=== PATIENT | male | born 1970 | race Caucasian/White ===

== ENCOUNTER 2020-07-14 13:55 | Outpatient (REF) | payer OTHER, SELFPAY ==
[2020-07-15 18:52] LABS: C. trachomatis RNA TMA NOT DETECTED (NOT DETECTED); N. gonorrhoeae RNA TMA NOT DETECTED (NOT DETECTED)
== END 2020-07-14 13:56 | disposition home or self-care (01) ==
LOC: HO.LNP 13:55
PROVIDERS: Visit Provider Family Medicine
DX: Z11.3 Encounter for screening for infections with a predominantly sexual mode of transmission (principal)
CPT/HCPCS: 36415; 87491; 87591

== ENCOUNTER 2020-07-16 09:12 | Outpatient (REF) | payer OTHER, SELFPAY ==
[2020-07-16 13:36] LABS: Syphilis Screen Nonreactive (Nonreactive)
[2020-07-19 08:19] LABS: HBS Num1 0.59 mIU/mL (0-7.99); HBsAGNum1 0.35 S/CO (0.00-0.99); HIV AB/AG Nonreactive (Nonreactive); HIV Num 1 0.06 S/CO (0.00-0.99); Hepatitis B Surface Antigen Negative (Negative); ~Hepatitis B Surface Antibody NONREACTIVE (Nonreactive)
[2020-07-19 09:03] LABS: HBc Num1 0.12 S/CO (0.00-0.79); Hepatitis B Core Antibody Nonreactive (Nonreactive); ~HepC Num1 0.08 S/CO (0.00-0.79); ~Hepatitis C Antibody Nonreactive (Nonreactive)
== END 2020-07-16 09:13 | disposition home or self-care (01) ==
LOC: HO.WFDLDS 09:12
PROVIDERS: Visit Provider Family Medicine
DX: Z11.3 Encounter for screening for infections with a predominantly sexual mode of transmission (principal)
CPT/HCPCS: 36415; 86704; 86706; 86780; 86803; 87340; 87389

== ENCOUNTER 2021-01-27 09:41 | Outpatient (REF) | payer OTHER, SELFPAY ==
[2021-01-27 10:48] LABS: MANUAL DIFF FLAG NO
[2021-01-27 10:57] LABS: Basophils Absolute Auto 0.1 X10*3/uL (0.0-0.2); Basophils Percent Auto 1.1 % (0-2); Eosinophils Absolute Auto 0.2 X10*3/uL (0.0-0.4); Eosinophils Percent Auto 5.4 % (0-4); Hematocrit 42.7 % (42-52); Hemoglobin 14.5 g/dl (14.0-18.0); Imm Gran Abs Auto 0.01 X10*3/uL (0.00-0.03); Imm Gran Pct Auto 0.2 % (0.0-0.4); Lymphocytes Percent Auto 45.4 % (20-40); Mean Corpuscular Hemoglobin 31.7 pg (27.0-33.0); Mean Corpuscular Volume 93.4 fL (80-98); Mean Platelet Volume 9.4 fL (9.4-12.4); Monocytes Absolute Auto 0.5 X10*3/uL (0.1-1.2); Monocytes Percent Auto 10.6 % (2-11); Neutrophils Absolute Auto 1.7 X10*3/uL (2.0-8.3); Neutrophils Percent Auto 37.3 % (45-73); Platelet Count 260 X10*3/uL (160-400); Red Blood Count 4.57 X10*6/uL (4.60-5.80); White Blood Count 4.4 X10*3/uL (4.8-10.8)
[2021-01-27 11:06] LABS: Alanine Aminotransferase 13 U/L (0-40); Albumin Level 4.6 g/dL (3.5-5.0); Alkaline Phosphatase 48 U/L (39-117); Anion Gap 11 (12-20); Aspartate Amino Transferase 16 U/L (5-37); Bilirubin Total 1.2 mg/dL (0.0-1.0); Blood Urea Nitrogen 15 mg/dL (9-16); Calcium 9.9 mg/dL (8.4-10.2); Carbon Dioxide 28 mmol/L (22-29); Chloride 105 mmol/L (96-108); Estimated Glomerular Filt Rate > 60; Glucose Random 97 mg/dL (60-115); Rheumatoid Factor < 15.0 IU/mL (<15.0); Sodium 140 mmol/L (135-145); Total Protein 6.9 g/dL (6.5-8.0)
[2021-01-27 12:15] LABS: Erythrocyte Sedimentation Rate 3 MM/HR (0-15)
[2021-01-29 13:31] LABS: CRP High Sensitivity <0.3 mg/L
== END 2021-01-27 09:42 | disposition home or self-care (01) ==
LOC: HO.WFDLDS 09:41
PROVIDERS: Visit Provider Family Medicine
DX: Z00.00 Encounter for general adult medical examination without abnormal findings (principal); M25.511 Pain in right shoulder; M25.512 Pain in left shoulder
CPT/HCPCS: 36415; 80053; 85025; 85652; 86141; 86431

== ENCOUNTER 2021-10-18 08:38 | Outpatient (REF) | payer OTHER, SELFPAY ==
--- NOTE | ~2021-10-18 | XR_ITS ---
EXAMINATION: XR HAND, RIGHT CLINICAL INFORMATION: Right hand pain. COMPARISON: None TECHNIQUE: PA, lateral, and oblique views of the right hand. FINDINGS: There is no evidence of acute fracture or dislocation of the right hand. Joint spaces are maintained. No suspicious erosive changes. No significant soft tissue swelling is seen. 2 mm bony density is seen about the radial aspect of the 1st metacarpal head likely sequela of previous avulsion injury. XR/XR hand RT min 3V IMPRESSION: No significant right hand abnormality appreciated.
== END 2021-10-18 08:39 | disposition home or self-care (01) ==
LOC: HO.HOSX 08:38
PROVIDERS: Visit Provider Orthopaedic Surgery
DX: M25.441 Effusion, right hand (principal); M79.644 Pain in right finger(s)
CPT/HCPCS: 73130; 99202

== ENCOUNTER → 2021-12-19 13:59 | Outpatient (BNVA) | payer OTHER, SELFPAY | PROVIDERS: PCP Family Medicine; Referring Provider Family Medicine; Visit Provider Surgery | DX: K64.4 Residual hemorrhoidal skin tags (principal); K64.8 Other hemorrhoids | CPT/HCPCS: 46600; 99202 ==

== ENCOUNTER 2023-07-04 08:05 | Outpatient (AMB) | payer OTHER, SELFPAY ==
--- NOTE | 2023-07-04 08:26 | MHC.OFFWIV ---
Intake Vital Signs 07/04/23 08:33 Pulse 72 Pulse Source Palpation Intake Visit Reasons: Cyst on left hand Allergies No Known Allergies Allergy (Verified 08/17/22 08:43) HPI Cyst on left hand HPI Details Patient?presents?with?painful?swelling?over?dorsal?aspect?of?right 3rd PIP join. He?says?this?is?getting?larger?and?quite?painful. No?injury.??No?redness. 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 Physical Exam Const General: no acute distress and well developed Nutritional Appearance: well nourished Orientation/consciousness: patient oriented x3 HEENT Head: Yes normocephalic and Yes atraumatic Eyes General: appearance normal, both eyes and all related structures Pupils: Equal, round and reactive pupils present EOM: EOMs intact bilaterally Resp Effort & Inspection: normal respiratory effort Auscultation: clear to auscultation bilaterally Cardio Rate: regular rate Rhythm: regular rhythm Heart sounds: S1 normal heart sound present, S2 normal heart sound present, no gallops, no murmurs and no rubs Neuro General: patient oriented x3 and gait normal Cranial nerves: Yes Equal, round and reactive pupils present Extrem Other: 1 cm mobile?lump/nodule?over?dorsal?aspect?of?left?3rd PIP joint. Tender?to?touch.??Tenderness?with?flexion?of?finger. No?erythema?or?excess?warmth. Psych Affect: normal affect Assessment & Plan Assessment & Plan (1) Ganglion cyst of finger of left hand: Code(s): M67.442 - Ganglion, left hand Plan: Likely?a?tendon?sheath?cyst. Referred?to?hand?specialist Meantime,?he?can?use?warm?compresses?or?warm?water?soaks. Orders: Referrals Hand Surgery Referral M67.442 - Ganglion, left hand Coding Level of Care Code Est Pt Level 3 (09137) Diagnoses Ganglion cyst of finger of left hand M67.442
[2023-07-04 08:33] VITALS: PULSE 72
== END 2023-07-04 08:29 | disposition home or self-care (01) ==
PROVIDERS: PCP Family Medicine; Visit Provider Family Medicine
DX: M67.442 Ganglion, left hand (principal)
CPT/HCPCS: 99213

== ENCOUNTER 2023-07-31 14:49 | Outpatient (AMB) | payer OTHER, SELFPAY ==
--- NOTE | 2023-07-31 15:02 | A.OFFVIS_ITS ---
Intake Vital Signs 07/31/23 15:13 Height 5 ft 6 in Weight 136 lb BMI 21.9 Handedness Right Intake Visit Reasons: New Prob - left hand Ganglion Cyst Intake Note: -Paul is a 53 year old right hand dominant male who presents today for a evaluation for his left MF lump. Patient reports jamming his hand about 2 years ago. He states that 7 months ago he noticed a lump that has been causing him a lot of pain. Pain is worse when bending his finger, cold weather makes his pain worse. Denies numbness and tingling. Allergies No Known Allergies Allergy (Verified 07/31/23 15:12) HPI New Prob - left hand Ganglion Cyst HPI Details 53-year-old right hand dominant male who presents in the office today, as a new patient, for an evaluation of a lump on the left middle finger. The patient reports he jammed his hand about 2 years ago. He states about 7 months ago, in 11/2022, he noticed a lump that was causing him pain. He states the pain increases when bending his finger or cold weather. He denies numbness or tingling. Patient has no known allergy history. Patient is not currently taking any medication at this time. Patient has no significant medical history. Patient has no known surgical history. 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 No ecchymosis, erythema, or edema. Dorsal asp ect of the PIP joint patient has a small BB sized mobile mass. No tenderness to palpation at the mass site. Able to perform full finger flexion, extension, abduction, adduction, finger cross, okay sign, and thumbs up without deficit. Able to make a closed fist. Sensation intact. Capillary refill is brisk. Radial pulse intact. Assessment & Plan Assessment & Plan (1) Mass of left hand: Comment: Dorsal aspect of the PIP joint of the left middle finger; small BB sized mobile mass Code(s): R22.32 - Localized swelling, mass and lump, left upper limb Plan Mr. Summers is a 53-year-old right hand dominant male who presents in the office today, as a new patient, for an evaluation of a lump on the left middle finger. The patient reports he jammed his hand about 2 years ago. He states about 7 months ago, in 11/2022, he noticed a lump that was causing him pain. He states the pain increases when bending his finger or cold weather. He denies numbness or tingling. Patient has no known allergy history. Patient is not currently taking any medication at this time. Patient has no significant medical history. Patient has no known surgical history. 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 We discussed the risks, benefits and alternatives to the surgery as well as the rehabilitation course. The risks; which include, but are not limited to infection, bleeding, nerve injury, ongoing pain, swelling, and stiffness, perioperative risk of injury to bones and soft tissues, and blood clots. I have answered all questions and with their understanding they have consented to move forward with an excision dorsal sided mass at the PIP joint of the left middle finger to be performed by Dr. Valdes. Dr. Valdes was available to evaluate the patient and to discuss what to expect preoperative and postoperatively. 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 A booking sheet was given to the soakers supervisor and they will reach out to t he patient for dates and time of availability. Follow up will be at the post operative appointment, or sooner if needed. Patient Instructions: Scribed for Елена Angel PA-C by baljinder White scribe, on 07/31/2023 at 2:59 pm, EST. Coding Level of Care Code Est Pt Level 4 (12370) Diagnoses Mass of left hand R22.32
[2023-07-31 15:13] VITALS: BMI 21.9
== END 2023-07-31 15:31 | disposition home or self-care (01) ==
PROVIDERS: PCP Family Medicine; Visit Provider Physician Assistant
DX: R22.32 Localized swelling, mass and lump, left upper limb (principal)
CPT/HCPCS: 99214

== ENCOUNTER → 2023-07-31 14:49 | Outpatient (BNVA) | payer OTHER, SELFPAY | PROVIDERS: PCP Family Medicine; Visit Provider Physician Assistant | DX: R22.32 Localized swelling, mass and lump, left upper limb (principal) | CPT/HCPCS: 99212 ==

== ENCOUNTER 2023-09-13 10:38 | Day surgery (SDC) | payer OTHER, SELFPAY ==
[2023-09-13 11:13] VITALS: BMI 24.5
--- NOTE | 2023-09-13 11:42 | MHC.SHP ---
Pre-Procedural Eval Section A - 24 Hr Update-Section A only Date of Service: 09/13/23 The patient is an INPATIENT: No Changes since office visit: No Cold of Flu in the past 2 weeks, No New Medical Problems, No Changes in Medication and No Patient answered all questions The patient has been examined within 24 hours of the surgical procedure. The History & Physical has been completed within 30 days and I have reviewed it.: Yes Section B - Complete if H&P > 30 days Chief Complaint: Localized swelling, mass and lump, left upper limb Allergies: Allergies Allergy/AdvReac Type Severity Reaction Status Date / Time No Known Allergies Allergy Verified 07/31/23 15:12 Plan I have reviewed the history and physical and performed a pertinent physical examination on my patient. No changes have occurred unless specified. Time Spent With Patient Time: Total time managing care of this patient today ____ minutes.
--- NOTE | 2023-09-13 11:42 | W.PM.OPN ---
Operative Note Operative Note Date of Service: 09/13/23 Narrative: Operative Note Preop diagnosis: 1. Left middle finger dorsal PIP mass Postop diagnosis: same Procedure: 1. Left middle finger dorsal PIP mass excision Surgeon: Isis Valdes MD Anesthesia: digital block using 1% lidocaine with epinephrine Findings: Small fibrous soft tissue mass measuring approximately 3-4 mm in diameter found between the central slip extensor tendon and the ulnar lateral band as they passed over the dorsal aspect of the PIP joint. EBL: Less than 5 mL Tourniquet time: None Specimens: Left middle finger soft tissue mass sent for histopathology Complications: None Disposition: Brought to recovery room in stable condition Plan: Follow-up for 7-10 days for wound check and suture removal and to check pathology Indications: The patient is 53 years old, with left middle finger dorsal PIP mass . The risks and benefits of operative treatment including but not limited to risk of damage to blood vessels, nerves, tendons, infection, persistent pain, persistent symptoms, recurrence or possible need for additional surgery were discussed with the patient and the patient wishes to proceed with surgery. Procedure: Once consent was obtained a digital block was performed in the preop area using a combination of 1% lidocaine with epinephrine. The patient was then brought back to the operating suite and placed on the operative table in supine position. A tourniquet was applied to the proximal aspect of the left upper extremity and the limb was prepped and draped in a standard surgical fashion. Once assured that we had a good block, I made a 1.5 cm dorsal longitudinal incision over the left middle finger PIP joint. The incision was made through the skin the subcutaneous tissues using a 15. Blade. I then carefully dissected down to the level of the mass using tenotomy scissors. There was a small rubbery or fibrous soft tissue mass between the central slip of the EDC tendon and the ulnar lateral band as they pass over the dorsal aspect of the left middle finger PIP joint. This was dissected free from the soft tissues and from the extensor mechanism using iris scissors and a 15. Blade. It was placed in 2 separate pieces on the back table to be sent for histopathology. No further masses were appreciated. He had full active and strong extension and flexion of the digit following the removal of the mass. Once satisfied with our left middle finger mass excision the wound was copiously irrigated with normal saline and hemostasis was obtained with a brief period of local pressure. The skin edges were reapproximated with some 5.0 nylon suture material and a sterile dressing was applied. The patient appears to have tolerated the procedure well and with no complications. All digits were well vascularized at the conclusion of the case.
[2023-09-13 13:22] VITALS: BP 129/85; PULSE 71; RESP 18; O2SAT 100
== END 2023-09-13 13:24 | disposition home or self-care (01) ==
PROVIDERS: PCP Family Medicine; Visit Provider Orthopaedic Surgery
PROC: (CPT 11420; principal; 2023-09-13 12:10)
DX: R22.31 Localized swelling, mass and lump, right upper limb (principal)
CPT/HCPCS: 11420; 88307; J0171

== ENCOUNTER → 2023-09-13 10:38 | Outpatient (BNV) | payer OTHER, SELFPAY | PROVIDERS: PCP Family Medicine; Visit Provider Orthopaedic Surgery | DX: R22.32 Localized swelling, mass and lump, left upper limb (principal) | CPT/HCPCS: 26111 ==

== ENCOUNTER 2023-09-26 12:59 | Outpatient (AMB) | payer OTHER, SELFPAY ==
--- NOTE | 2023-09-26 13:02 | A.OFFVIS_ITS ---
Intake Vital Signs 09/26/23 13:03 Height 5 ft 6 in Weight 151 lb BMI 24.4 Intake Visit Reasons: PO LT MF dorsal mass exc 09/13/23 AR Intake Note: Paul 53 yr old male presents today for his PO LT MF dorsal mass exc 09/13/[address] Valdes. Sutures removed and steri strips applied. Allergies No Known Allergies Allergy (Verified 09/26/23 13:03) HPI PO LT MF dorsal mass exc 09/13/23 AR HPI Details Paul is a 53 year old right hand dominant man who returns S/P left middle finger mass excision, DOS: 09/13/23. He says he is doing well, and is happy with the results of his surgery. He denies any pain or stiffness. 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 He has not been working since his surgery. 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 Sutures removed and Steri-Strips applied He can make a fist and extend all his digits No locking or catching Sensation is intact Cap refill is brisk Pathology report: 09/13/23 Diagnosis Soft tissue, finger mass , excision: [place] spindle cell proliferation consistent with fibroma (of tendon sheath); negative for malignancy Psych Appearance: grossly normal Affect: normal affect Attitude: cooperative Assessment & Plan Assessment & Plan (1) Fibroma of finger of left hand: Code(s): D21.12 - Benign neoplasm of connective and other soft tissue of left upper limb, including shoulder Plan Assessment & Plan: 1. 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 I explained the signs and symptoms of infection, if the patient develops any new or worsening erythema, drainage, pain, or warmth they should contact the clinic or attend the ED. He can follow up prn Scribed for Isis Valdes MD by Alexis Garrison, medical administrative, on 09/26/23 at 1:15 PM, EST. Coding Level of Care Code Global (20498) Diagnoses Fibroma of finger of left hand D21.12
[2023-09-26 13:03] VITALS: BMI 24.4
== END 2023-09-26 13:22 | disposition home or self-care (01) ==
PROVIDERS: PCP Family Medicine; Visit Provider Orthopaedic Surgery
DX: D21.12 Benign neoplasm of connective and other soft tissue of left upper limb, including shoulder (principal)
CPT/HCPCS: 99024

== ENCOUNTER → 2023-09-26 12:59 | Outpatient (BNVA) | payer OTHER, SELFPAY | PROVIDERS: PCP Family Medicine; Visit Provider Orthopaedic Surgery | DX: Z09 Encounter for follow-up examination after completed treatment for conditions other than malignant neoplasm (principal); Z87.2 Personal history of diseases of the skin and subcutaneous tissue | CPT/HCPCS: 99212 ==

== ENCOUNTER 2024-08-08 13:38 | Outpatient (REF) | payer OTHER, SELFPAY ==
[2024-08-08 17:15] LABS: Influenza A PCR NEGATIVE (Negative); Influenza B PCR NEGATIVE (Negative); Resp Syncy Virus RNA Qual PCR POSITIVE (Negative); SARS COV2 PCR INHOUSE NEGATIVE (Negative)
== END 2024-08-08 13:39 | disposition home or self-care (01) ==
LOC: HO.LNP 13:38
PROVIDERS: PCP Family Medicine; Visit Provider Physician Assistant
DX: J06.9 Acute upper respiratory infection, unspecified (principal); Z11.52 Encounter for screening for COVID-19; Z13.83 Encounter for screening for respiratory disorder NEC
CPT/HCPCS: 0241U; 99212

== ENCOUNTER → 2024-08-08 13:38 | Outpatient (AMB) | END | disposition home or self-care (01) ==

== ENCOUNTER 2024-08-25 13:16 | Outpatient (AMB) | payer OTHER, SELFPAY ==
--- NOTE | 2024-08-25 13:17 | MHC.PC.OV ---
Vital Signs 08/25/24 13:24 Height 5 ft 6 in Weight 142 lb BMI 22.9 BP 129/75 Blood Pressure Location Rt brachial Position Sitting Respiration 16 Pulse 69 Pulse Source Pulse Oximeter Temp 97.7 F Temp Source Oral Pulse Oximetry (%) 99 Oxygen Delivery Method Room Air Intake Visit Reasons: est care/dermatology referral Intake Note: patient here to [facility] care and requesting a dermatology referral. [employer] Consultant Required: No Allergies No Known Allergies Allergy (Verified 08/25/24 13:40) Medication List - Last Reconciled 08/25/24 by Obie Barry CNP No Known Home Meds Tobacco use date assessed: 08/25/24 Dental Screening Dental Screen Date: 08/25/24 Did you have a dental visit in the last 12 months?: Yes Did you have a dental problem in the last 6 months where you did not have access to dental care?: No Was dental information given to patient?: Patient has dentist HPI HPI Comments History of Present Illness Details 54-year-old male presents to establish care Prior PCP? - Dr. Rachel, [facility] Last office visit/CPE/labs - About 5 years ago Acute issue(s) - Red discoloration around his neck, upper chest, and shoulders and attributes this to prolonged sun exposure; however, he has been avoiding sun exposure. Followed by [facility] until 2.5 years ago for skin checks; requests a new referral. - Painless lesion to his left hand. His mother and brother have history of ganglion cysts. Past Medical History - Hyperopia Surgical History - Hiatal hernia repair Family History - Mom: Breast cancer, hyperlipidemia Social History - Nonsmoker. Does not vape. Drinks 2-3 beers monthly.. Denies recreational drug use - Has been making healthy dietary choices. Exercises routinely. Generally sleep well Health maintenance - Last eye exam was 2 years ago. Declines referral to Ophthalmology - Last dental was last month. Follow up for dental care every 6 months - Last tetanus vaccine was more than 10 years ago; Declines Tdap vaccine - Has not been vaccinated for the flu this season; declines vaccination - He is not vaccinated for shingles. Recommended shingles vaccine; he may get the vaccines from the local pharmacy - He is not vaccinated for pneumonia. Declines the pneumonia vaccine. - Last colonoscopy was 5 years ago somewhere in [place]: normal. Will review [facility] record for his colonoscopy. 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 1. Little interest or pleasure in doing things: not at all 2. Feeling down, depressed, or hopeless: not at all 3. Trouble falling or staying asleep, or sleeping too much: not at all 4. Feeling tired or having little energy: not at all 5. Poor appetite or overeating: not at all 6. Feeling bad about yourself - or that you are a failure or have let yourself or your family down: not at all 7. Trouble concentrating on things, such as reading the newspaper or watching television: not at all 8. Moving or speaking so slowly that other people could have noticed. Or the opposite - being so fidgety or restless that you have been moving around a lot more than usual: not at all 9. Thoughts that you would be better off or of hurting yourself in some way: not at all Total score: 0 Depression Screening Interpretation: Negative Depression Screening Done: Yes 32726 - PHQ-9 Billing: Yes Source: Developed by Drs. Cordell Lenz, Jade Viera, Austin Mcgrath and colleagues, with an educational reddy from [employer] Thrive Questionnaire Date Thrive assessed: 08/25/24 I am a: Patient What is your living situation today?: I choose not to answer this question Within the past 12 months, did the food you bought not last and you didn't have the money to get more?: I choose not to answer this question Within the past 12 months, did you worry whether your food would run out before you got money to buy more?: I choose not to answer this question Do you have trouble paying for medicines?: I choose not to answer this question Do you have trouble getting transportation to medical appointments?: I choose not to answer this question Do you have trouble paying your heating and electricity bill?: I choose not to answer this question Do you have trouble taking care of your child, family member or friend?: I choose not to answer this question Do you have trouble with day-to-day activities such as bathing, preparing meals, shopping, managing finances, etc.?: I choose not to answer this question Are you currently unemployed and looking for a job?: I choose not to answer this question Are you interested in more education?: I choose not to answer this question Please select the resources that you would like help with: None Currently or been in a relationship where the following occur: I choose not to answer THRIVE Score: 0 AUDIT C Alcohol Use Questionnaire (AUDIT-C) 1. How often do you have a drink containing alcohol?: Never Total Score: 0 Score Reviewed/Action Taken: Yes ALIZA-7 AMB Questionnaire ALIZA-7 Date ALIZA - 7 assessed: 08/25/24 Feeling nervous, anxious, or on edge: 0 = Not at all Not being able to stop or control worryin = Not at all Worrying too much about different things: 0 = Not at all Trouble relaxin = Not at all Being so restless that it is hard to sit still: 0 = Not at all Becoming easily annoyed or irritable: 0 = Not at all Feeling afraid as if something awful might happen: 0 = Not at all Total ALIZA-7 score (0-4 normal; 5-9 mild; 10-14 moderate; 15-21 severe): 0 Source: Developed by Drs. Cordell Lenz, Jade Viera, Austin Mcgrath and colleagues, with an educational reddy from [employer] ALIZA-7 Assessment Billing ALIZA-7 Assessment Tool: ALIZA-7 Assessment 71433 Review of Systems Const Details: Denies chills, Denies fatigue, Denies fever(s), Denies headache(s) and Denies weakness HEENT Denies change in vision, Denies dizziness, Denies headache(s), Denies hearing loss, Denies nasal congestion, Denies sinus pain, Denies sinus pressure and Denies sore throat Card Denies chest pain, Denies lightheadedness, Denies dyspnea and Denies other (palpitations) Resp Denies cough, Denies dyspnea and Denies wheezing GI Denies abdominal pain, Denies melena, Denies hematochezia, Denies change in bowel habits, Denies dyspepsia and Denies nausea Denies hematuria and Denies dysuria Musc Reports lesion to left hand, Denies abnormal gait, Denies myalgias, Denies arthralgias, Denies numbness and Denies tingling Skin/Breast Reports skin discoloration to neck, upper chest, and shoulder, Denies rash, Denies unusual bruising and Denies wounds Neuro Denies abnormal gait, Denies dizziness, Denies headache(s), Denies memory loss, Denies numbness, Denies Sensory deficit (Neuro), Denies tingling and Denies weakness Psych Denies anxiety, Denies depression and Denies memory loss Endo Denies cold intolerance, Denies fatigue, Denies heat intolerance, Denies polydipsia and Denies polyuria Javi/Lymph Denies easy bleeding and Denies easy bruising Aller/Immun Denies wheezing Physical exam (Primary Care) Vital Signs: Last Vital Signs Temp 97.7 F 08/25/24 13:24 Pulse 69 08/25/24 13:24 Resp 16 08/25/24 13:24 BP 129/75 08/25/24 13:24 Pulse Ox 99 08/25/24 13:24 Oxygen Delivery Method Room Air 08/25/24 13:24 BMI result Body Mass Index 22.9 Tobacco/Smoking Status: Tobacco use Status Tobacco use date assessed 08/25/24 08/25/24 13:30 Patient Tobacco Use Status Never used Tobacco 08/25/24 13:21 e-Cigarette/Vaping Use Never Used 08/25/24 13:30 PHQ-9: PHQ-9 Score PHQ-9: Total score 0 08/25/24 13:35 Depression Screening Interpretation: Negative Thrive Assessment: Date of Thrive Assessment Date Thrive assessed 08/25/24 08/25/24 13:21 Currently or been in a relationship where the following occur: I choose not to answer Const Other: General: no acute distress, well developed, alert and awake Nutritional Appearance: well nourished Orientation/consciousness: patient oriented x3 [facility] Head: Yes normocephalic and Yes atraumatic Ears: hearing grossly normal bilaterally and TM's normal bilaterally General nose exam: Normal external nose present and Normal nares present Mouth: Normal oral and palatal mucosa present and moist mucous membranes Teeth and gingiva: dentition normal Throat: Yes oropharynx normal Eyes Pupils: Equal, round and reactive pupils present and Pupil accommodation reflex normal EOM: EOMs intact bilaterally Neck Neck: Yes normal visual inspection, Yes no lymphadenopathy and Yes trachea midline Thyroid: Thyroid normal Carotids: no bruits Lymphatic: no lymphadenopathy noted Chest Chest palpation & inspection: normal inspection of the chest Resp Effort & Inspection: normal respiratory effort Auscultation: clear to auscultation bilaterally Cardio Rate: regular rate Rhythm: regular rhythm Heart sounds: S1 normal heart sound present, S2 normal heart sound present, no gallops, no murmurs and no rubs Bruits: no abdominal aortic bruits and no carotid bruits GI Palpation (GI): No Abdominal aortic bruit present, Soft to palpation, nontender, No hepatosplenomegaly present and No Rebound tenderness present Auscultation: normal bowel sounds General: Yes no CVA tenderness Back/Spine/Pelvis Back: no CVA tenderness Cervical Spine: cervical ROM normal and No Cervical spine tenderness Thoracic/Lumbar Spine: thoraco-lumbar ROM normal, No pain with thoraco-lumbar ROM, No thoracic spinal tenderness and No lumbar spinal tenderness Skin General: warm and dry. Normal skin color. Normal skin turgor. Red discoloration around his neck, upper chest, and shoulders Lesions: Small, painless lesion to the middle of his left palm. No overt infection Rashes: no rashes Trauma: no lacerations or abrasions Wounds: no wounds Nails: normal Neuro General: patient oriented x3, gait normal and CN's II-XI intact bilaterally Cranial nerves: Yes Equal, round and reactive pupils present Cognition (Neuro): normal cognition Gait exam (Neuro): Normal gait present Motor exam (neuro): 5/5 motor strength present throughout Sensory Exam: No Sensory deficit (Neuro) Deep tendon reflexes (DTR's): Right patellar reflex intensity grade: 2+ and Left patellar reflex intensity grade: 2+ Extrem General: Yes normal to inspection, No edema and No calf tenderness Psych Appearance: grossly normal Affect: normal affect Attitude: cooperative Thought process: Normal thought process present Coding Level of Care Code New Pt Prev Care 40-64y(66381) Diagnoses Normal physical examination, routine Z00.00 Discoloration of skin L81.9 Colon cancer screening Z12.11 Vaccine counseling Z71.85 Skin lesion of hand L98.9 Hyperopia H52.00 Laboratory tests ordered as part of a complete physical exam (CPE) Z00.00 Additional Codes ALIZA-7 Assessment Billing - ALIZA-7 Assessment Tool: ALIZA-7 Assessment 65346 ([id number]) PHQ-9 - 86718 - PHQ-9 Billing: Yes ([id number]) Assessment & Plan Assessment & Plan (1) Normal physical examination, routine: Code(s): Z00.00 - Encounter for general adult medical examination without abnormal findings Category: Medical Plan: No significant functional limitation. Healthy diet and routine exercise encouraged. Advised to get lab work done and follow-up for telehealth visit in 2-3 weeks for labs review. Return sooner if with symptoms or concerns. Verbalized understanding and agreed with treatment plan. (2) Discoloration of skin: Code(s): L81.9 - Disorder of pigmentation, unspecified Category: Medical Plan: Red discoloration around his neck, upper chest, and shoulders related to prolonged sun exposure. Advised to avoid prolonged sun exposure. May use sunscreen as needed. He was followed by [facility] until 2.5 years ago. Referred to [facility] as requested. (3) Colon cancer screening: Code(s): Z12.11 - Encounter for screening for malignant neoplasm of colon Category: Medical Plan: Last colonoscopy was 5 years ago: normal; unsure of where he had the colonoscopy done. Will review [facility] record for his colonoscopy. He does not want to have a colonoscopy until the next few years. (4) Vaccine counseling: Code(s): Z71.85 - Encounter for immunization safety counseling Category: Medical Plan: He has never been vaccinated for shingles or pneumonia and unsure of last tetanus vaccine. Instructed on importance of vaccination and encouraged to get vaccinated for shingles, pneumonia, and tetanus. Declines tetanus and pneumonia vaccines and notes he will get vaccinated for shingles. Advised that he may get vaccinated for shingles from the local pharmacy. He may also get the pneumonia vaccines from the pharmacy. Encouraged to follow-up if he changes his mind on the tetanus vaccine. Verbalized understanding and agreed with the plan. (5) Skin lesion of hand: Code(s): L98.9 - Disorder of the skin and subcutaneous tissue, unspecified Category: Medical Plan: Small, painless lesion to the middle of his left palm. No overt infection Likely a cyst. He will continue to monitor for pain, discomfort, and growth and will follow-up as needed. (6) Hyperopia: Code(s): H52.00 - Hypermetropia, unspecified eye Category: Medical Plan: Last eye exam was 2 years ago. Declines referral to Ophthalmology. (7) Laboratory tests ordered as part of a complete physical exam (CPE): Code(s): Z00.00 - Encounter for general adult medical examination without abnormal findings Category: Medical Plan: Fasting labs ordered as part of a complete physical exam. Advised to fast for at least 10 hours before getting labs drawn. May drink water Verbalized understanding and agreed with treatment plan. Orders: Orders Complete Blood Count Auto Diff Today Z00.00 - Encounter for general adult medical examination without abnormal findings Comprehensive [place]. Panel Fast Today Z00.00 - Encounter for general adult medical examination without abnormal findings Lipid Panel Today Z00.00 - Encounter for general adult medical examination without abnormal findings Vitamin D 25-OH Total Today Z00.00 - Encounter for general adult medical examination without abnormal findings Microalbumin, Random (w Creat) Today Z00.00 - Encounter for general adult medical examination without abnormal findings TSH reflex Free T4 Today Z00.00 - Encounter for general adult medical examination without abnormal findings UA CC w/rflx Micro + Cult Today Z00.00 - Encounter for general adult medical examination without abnormal findings PSA, Ultra Sensitive Today Z00.00 - Encounter for general adult medical examination without abnormal findings Referrals Dermatology Referral L81.9 - Disorder of pigmentation, unspecified
[2024-08-25 13:24] VITALS: BP 129/75; PULSE 69; RESP 16; TEMP 36.5; O2SAT 99; BMI 22.9
== END 2024-08-25 14:06 | disposition home or self-care (01) ==
PROVIDERS: PCP Nurse Practitioner Family; Visit Provider Nurse Practitioner Family
DX: Z00.00 Encounter for general adult medical examination without abnormal findings (principal); L81.9 Disorder of pigmentation, unspecified; Z12.11 Encounter for screening for malignant neoplasm of colon; Z71.85 Encounter for immunization safety counseling; L98.9 Disorder of the skin and subcutaneous tissue, unspecified; H52.00 Hypermetropia, unspecified eye

== ENCOUNTER → 2024-08-25 13:16 | Outpatient (BNVA) | payer OTHER, SELFPAY | PROVIDERS: PCP Nurse Practitioner Family; Visit Provider Nurse Practitioner Family | DX: Z00.00 Encounter for general adult medical examination without abnormal findings (principal); L81.9 Disorder of pigmentation, unspecified; H52.00 Hypermetropia, unspecified eye; L98.9 Disorder of the skin and subcutaneous tissue, unspecified; Z71.85 Encounter for immunization safety counseling | CPT/HCPCS: 96127; 99386 ==

== ENCOUNTER 2025-01-09 08:07 | Outpatient (REF) | payer OTHER, SELFPAY ==
--- NOTE | ~2025-01-09 | XR_ITS ---
EXAMINATION: XR LUMBAR SPINE 4 OR MORE VIEWS HISTORY: M54.50 - Low back pain, unspecified COMPARISON: There are no prior studies for comparison. FINDINGS: AP, lateral, bilateral oblique, and coned down views of the lumbar spine are submitted. Osseous mineralization is normal. Five nonrib-bearing lumbar vertebral bodies are identified, maintaining normal height and alignment without evidence of fracture or spondylolisthesis. There is mild disc space narrowing at L5-S1. The posterior elements are intact. There is no spondylolysis. The visualized paraspinal soft tissues are unremarkable. XR/XR lumbar spine 4V min IMPRESSION: Mild disc space narrowing at L5-S1. Otherwise unremarkable examination of the lumbar spine. Electronically signed by: Cordell Rehman MD 01/09/2025 09:30 AM EDT
== END 2025-01-09 08:08 | disposition home or self-care (01) ==
LOC: HO.HMGCX 08:07
PROVIDERS: PCP Nurse Practitioner Family; Visit Provider Physician Assistant
DX: M54.50 Low back pain, unspecified (principal)
CPT/HCPCS: 72110; 99212

== ENCOUNTER 2025-01-09 08:07 | Outpatient (AMB) | payer OTHER, SELFPAY ==
[2025-01-09 08:09] VITALS: BP 127/88; PULSE 57; TEMP 36.6; O2SAT 99; BMI 23.3
--- NOTE | 2025-01-09 08:09 | MHC.OFFWIV ---
Intake Vital Signs 01/09/25 08:09 Height 5 ft 6 in Weight 144 lb 8 oz BMI 23.3 BP 127/88 Blood Pressure Location Lt brachial Position Sitting Pulse 57 Pulse Source Pulse Oximeter Temp 97.9 F Temp Source Oral Pulse Oximetry (%) 99 Oxygen Delivery Method Room Air Intake Visit Reasons: EP lower back pain Intake Note: Patient presents with lower back pain 6 days and hip since October Patient Tobacco Use Status: Never used Tobacco Pot Builder Required: No Allergies No Known Allergies Allergy (Verified 01/09/25 08:14) Medication List - Last Reconciled 01/09/25 by Harmony Rasmussen PA-C No Known Home Meds Do you need a note to return to daycare/school/sports/work: No HPI HPI Comments History of Present Illness Details History - The patient is a 54-year-old male presenting with acute on chronic low back pain. 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 - The pain is typically present daily, radiating to the hip muscles, and can escalate to sharp, electrical-like pain in the spine, leading to muscle spasms and flattening of the lumbar curve. - The condition has been episodic, with severe episodes occurring approximately 6 times since onset, the last being in 2020. - The patient has attempted various interventions including physical therapy, massage, yoga, and Pilates, with limited success. He has also used NSAIDs and muscle relaxants for symptom relief. - The patient has not had a recent MRI and has a history of chronic strains and sprains documented by a senior procurement specialist. Physical Exam General: Cooperative, healthy appearing, comfortable, no acute distress and well developed Orientation: Patient oriented x3 Limitations: No limitations Head: Normal to inspection Ears: Hearing grossly normal bilaterally Nose: Normal External nose present Face and sinus: Normal facial exam Mouth: normal, moist oral mucosa Eyes: Appearance normal, both eyes and all related structures Neck: Normal visual inspection and Yes full ROM Respiratory: Normal respiratory effort and able to speak in complete sentences. 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 Current occupational exposures/hazards: No Cognitive needs: No Hearing needs: No Vision needs: No Review of Systems Const All systems reviewed & are unremarkable except as noted in HPI and below Physical Exam Vital Signs: Last Vital Signs Temp 97.9 F 01/09/25 08:09 Pulse 57 01/09/25 08:09 BP 127/88 01/09/25 08:09 Pulse Ox 99 01/09/25 08:09 Oxygen Delivery Method Room Air 01/09/25 08:09 BMI result Body Mass Index 23.3 Assessment & Plan Assessment & Plan (1) Low back pain: Code(s): M54.50 - Low back pain, unspecified Qualifiers: Chronicity: acute Back pain laterality: bilateral Sciatica presence: without sciatica Qualified Code(s): M54.50 - Low back pain, unspecified Plan: Plan Patient was informed and verbally consented to the use of an ambient scribe for clinic note documentation during this visit Chronic Low Back Pain - Plan includes obtaining an x-ray to assess the lumbar spine and follow up with PCP for consideration for an MRI if symptoms persist. - Prescribed cyclobenzaprine 5 mg for muscle relaxation, with the option to increase to 10 mg if needed. - Recommended topical NSAID, Voltaren gel, to minimize gastrointestinal side effects. Orders: Orders XR lumbar spine 4V min Today M54.50 - Low back pain, unspecified Medications: New cyclobenzaprine 5 mg PO Q8H PRN 30 tabs 0RF Muscle Spasm Coding Level of Care Code Est Pt Level 3 (88204) Diagnoses Acute bilateral low back pain without sciatica M54.50 Chronicity: acute Back pain laterality: bilateral Sciatica presence: without sciatica
== END 2025-01-09 08:49 | disposition home or self-care (01) ==
PROVIDERS: PCP Nurse Practitioner Family; Visit Provider Physician Assistant
DX: M54.50 Low back pain, unspecified (principal)

== ENCOUNTER → 2025-01-09 08:56 | Outpatient (BNV) | payer OTHER, SELFPAY | PROVIDERS: PCP Nurse Practitioner Family; Visit Provider Radiology Diagnostic Radiology | DX: M54.50 Low back pain, unspecified (principal) | CPT/HCPCS: 72110 ==

== ENCOUNTER 2025-02-06 12:57 | Outpatient (AMB) | payer OTHER, SELFPAY ==
--- NOTE | 2025-02-06 13:14 | MHC.PC.OV ---
Vital Signs 02/06/25 13:17 Height 5 ft 6 in Weight 135 lb 8 oz BMI 21.9 BP 116/64 Blood Pressure Location Rt brachial Position Sitting Respiration 16 Pulse 90 Pulse Source Pulse Oximeter Temp 97.9 F Temp Source Temporal Artery Scan Pulse Oximetry (%) 95 Oxygen Delivery Method Room Air Intake Visit Reasons: Referral and back issues Intake Note: Paul presents in the office today to discuss getting a referral for back issues. Allergies No Known Allergies Allergy (Verified 02/06/25 13:31) Medication List - Last Reconciled 02/06/25 by Obie Barry CNP cyclobenzaprine 5 mg PO Q8H PRN Tobacco use date assessed: 02/06/25 Dental Screening Dental Screen Date: 02/06/25 Did you have a dental visit in the last 12 months?: Yes Did you have a dental problem in the last 6 months where you did not have access to dental care?: No Was dental information given to patient?: Patient has dentist HPI HPI Comments History of Present Illness Details 54-year-old male presents with complaints of h/o intemittent chronic right-sided low back pain 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 Exercise, including lifting light weights intensifies the pain. He describes the pain as sharp spasms. He notes the pain usually occurs for 1 month. He has not experienced any symptoms in the past 2 weeks. He notes that he has experiences severe episodes of the pain a total of 6-8 times. No acute symptoms at this time. He denies history of fall, injury, or trauma. He was evaluated at [facility] walk-in clinic on 01/09/2022 for chronic low back pain, radiating to the hip muscles since the age of 25. He noted that The condition has been episodic, with severe episodes occurring approximately 6 times since onset, the last being in 2020. Physical therapy massage, yoga, and Pilates were ineffective. X-ray of lumbar spine revealed mild disc space narrowing L5-S1. Otherwise unremarkable x-ray of lumbar spine. 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 Current occupational exposures/hazards: No Cognitive needs: No Hearing needs: No Vision needs: No Questionnaire Thrive Questionnaire Date Thrive assessed: 08/25/24 I am a: Patient What is your living situation today?: I choose not to answer this question Within the past 12 months, did the food you bought not last and you didn't have the money to get more?: I choose not to answer this question Within the past 12 months, did you worry whether your food would run out before you got money to buy more?: I choose not to answer this question Do you have trouble paying for medicines?: I choose not to answer this question Do you have trouble getting transportation to medical appointments?: I choose not to answer this question Do you have trouble paying your heating and electricity bill?: I choose not to answer this question Do you have trouble taking care of your child, family member or friend?: I choose not to answer this question Do you have trouble with day-to-day activities such as bathing, preparing meals, shopping, managing finances, etc.?: I choose not to answer this question Are you currently unemployed and looking for a job?: I choose not to answer this question Are you interested in more education?: I choose not to answer this question Please select the resources that you would like help with: None Currently or been in a relationship where the following occur: I choose not to answer THRIVE Score: 0 ALIZA-7 AMB Questionnaire ALIZA-7 Date ALIZA - 7 assessed: 08/25/24 Source: Developed by Drs. Cordell Lenz, Jade Viera, Austin Mcgrath and colleagues, with an educational reddy from [employer]. Review of Systems Const Details: Const Denies chills, Denies fatigue, Denies fever(s), Denies headache(s) and Denies weakness ENT Denies dizziness and Denies headache(s) Card Denies chest pain, Denies lightheadedness, Denies dyspnea and Denies other (Palpitations) Resp Denies cough, Denies dyspnea, Denies wheezing and Denies other ( shortness of breath) GI Denies abdominal pain, Denies melena, Denies hematochezia, Denies change in bowel habits, Denies dyspepsia and Denies nausea Denies hematuria and Denies dysuria Musc Denies abnormal gait, Denies myalgias, Denies arthralgias, Denies numbness and Denies tingling Skin/Breast Denies rash, Denies unusual bruising and Denies wounds Neuro Denies abnormal gait, Denies dizziness, Denies headache(s), Denies memory loss, Denies numbness, Denies Sensory deficit (Neuro), Denies tingling and Denies weakness Psych Denies anxiety, Denies depression, Denies memory loss Endo Denies cold intolerance, Denies fatigue, Denies heat intolerance, Denies polydipsia and Denies polyuria Aller/Immun Denies wheezing Physical exam (Primary Care) Vital Signs: Last Vital Signs Temp 97.9 F 02/06/25 13:17 Pulse 90 02/06/25 13:17 Resp 16 02/06/25 13:17 BP 116/64 02/06/25 13:17 Pulse Ox 95 02/06/25 13:17 Oxygen Delivery Method Room Air 02/06/25 13:17 BMI result Body Mass Index 21.9 Tobacco/Smoking Status: Tobacco use Status Tobacco use date assessed 02/06/25 02/06/25 13:20 Patient Tobacco Use Status Never used Tobacco 02/06/25 13:17 e-Cigarette/Vaping Use Never Used 02/06/25 13:17 Thrive Assessment: Date of Thrive Assessment Date Thrive assessed 08/25/24 02/06/25 13:14 Currently or been in a relationship where the following occur: I choose not to answer Const Other: General: no acute distress and well developed Nutritional Appearance: well nourished Orientation/consciousness: patient oriented x3 HENMT Head: Yes normocephalic and Yes atraumatic Eyes General: appearance normal, both eyes and all related structures Pupils: Equal, round and reactive pupils present EOM: EOMs intact bilaterally Resp Effort & Inspection: normal respiratory effort Auscultation: clear to auscultation bilaterally Cardio Rate: regular rate Rhythm: regular rhythm Heart sounds: S1 normal heart sound present, S2 normal heart sound present, no gallops, no murmurs and no rubs GI Palpation (GI): No Abdominal aortic bruit present, Soft to palpation, nontender, No hepatosplenomegaly present and No Rebound tenderness present Auscultation: normal bowel sounds General: Yes no CVA tenderness Back/Spine/Pelvis Back: no CVA tenderness Cervical Spine: cervical ROM normal and No Cervical spine tenderness Thoracic/Lumbar Spine: thoraco-lumbar ROM normal, No pain with thoraco-lumbar ROM, No thoracic spinal tenderness and No lumbar spinal tenderness Extrem General: Yes normal to inspection, No edema and No calf tenderness Skin General: warm and dry. Normal skin color. Normal skin turgor Lesions: no lesions Rashes: no rashes Trauma: no lacerations or abrasions Wounds: no wounds Nails: normal Neuro General: patient oriented x3, gait normal and no focal neuro deficit Cranial nerves: Yes Equal, round and reactive pupils present Cognition (Neuro): normal cognition Gait exam (Neuro): Normal gait present Sensory Exam: No Sensory deficit (Neuro) Psych Appearance: grossly normal Affect: normal affect Attitude: cooperative Thought process: Normal thought process present Coding Level of Care Code Est Pt Level 4 (59235) Diagnoses Acute bilateral low back pain without sciatica M54.50 Chronicity: acute Back pain laterality: bilateral Sciatica presence: without sciatica Assessment & Plan Assessment & Plan (1) Low back pain: Code(s): M54.50 - Low back pain, unspecified Category: Medical Qualifiers: Chronicity: acute Back pain laterality: bilateral Sciatica presence: without sciatica Qualified Code(s): M54.50 - Low back pain, unspecified Plan: No acute symptoms at this time. No tenderness to palpation. No acute injury or trauma. May take Tylenol ibuprofen for pain or discomfort. Take cyclobenzaprine as prescribed. Warm/cool compresses encouraged. Referred to [facility] Orthopedics. Encouraged to schedule a telehealth visit for labs review and perform fasting lab work before that visit. Return sooner with worsening or new symptoms. Verbalized understanding and agreed with the plan. Orders: Referrals Orthopedics Referral M54.50 - Low back pain, unspecified
[2025-02-06 13:17] VITALS: BP 116/64; PULSE 90; RESP 16; TEMP 36.6; O2SAT 95; BMI 21.9
== END 2025-02-06 13:43 | disposition home or self-care (01) ==
LOC: HO.HMCFM 12:58
PROVIDERS: PCP Nurse Practitioner Family; Visit Provider Nurse Practitioner Family
DX: M54.50 Low back pain, unspecified (principal)

== ENCOUNTER → 2025-02-06 12:57 | Outpatient (BNVA) | payer OTHER, SELFPAY | PROVIDERS: PCP Nurse Practitioner Family; Visit Provider Nurse Practitioner Family | DX: M54.50 Low back pain, unspecified (principal) | CPT/HCPCS: 99212 ==

== ENCOUNTER 2025-03-26 09:27 | Outpatient (AMB) | payer OTHER, SELFPAY ==
--- NOTE | 2025-03-26 09:30 | A.OFFVIS_ITS ---
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 Patient was referred by [facility] Family Medicine 02/11/25. Patient had a Lumbar spine x ray done on 01/09/25 at [facility] walk in clinic. Patient was se en by his PCP 02/06/25 at their visit they discussed that he has had back pain since he was 25 years old, in the past few weeks the right sided lower back pain started to flair up. 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 At today's visit he states that he has lived with this pain for over 30 years, and that the pain is very sporadic. He states that due to the pain he had to give up some of his passions like riding a bike or snowboarding. Patient states that he has tried and failed physical therapy and tried injections in the past with no relief. Allergies No Known Allergies Allergy (Verified 03/26/25 09:35) Medication List - Last Reconciled 03/26/25 by Lenka Phillips MD No Known Home Meds HPI Comments Details: On/off for many years now. Severe episodes 6-8 times since age 25. Last severe episode few months, goes away quickly if he completely stops (no work, lies down). No specific diagnosis besides chronic strain. Last MRI 15 years ago without anything extraordinary. He has cut back with work because he is more difficulty. But trying to do exercises before it reproduces the pain. Starts on the sides/hip area, goes around the hip/groin and gluteus. It is in the gluteus muscles that would be very tight. When he gets severe, difficult to bend forward. No shooting pain lower than groin/medial thighs. Had gone to [facility] in , 6-10 years ago, but he remembers being under fluoro. Today no pain. Last xray at Urgent Care which probably was a lumbar spine, told to be unremarkable. History of right labral hip tear, catches here and there but has not been an issue. 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 Current occupational exposures/hazards: No Cognitive needs: No Hearing needs: No Vision needs: No Physical Exam Exam Exam: Constitutional: Patient appears to be in no acute distress, well nourished and well developed. Patient was appropriately conversant and oriented. Good historian. MSK: No specific abnormalities found on inspection of the spine and all extremities. No pain with palpation over the lumbar area. But indicated that usual pain would come on piriformis area. Lumbar ROM was full. Bilateral hip, knee and ankle ROM WNL. No ligamentous laxity or crepitance. No increased effusion. Straight-leg raising test negative. FABERE test negative. Gillet test is negative. Strength is 5/5 in all muscle groups tested. No increased tone noted. Neurological: Neurologic examination of the upper and lower extremities was nonfocal with intact sensation, muscle stretch reflexes and without focal motor deficits . Garrison?s negative bilaterally. Babinski was down going bilaterally. Clonus was negative. Gait is non-antalgic without loss of balance. Vital Signs: BMI result Body Mass Index 22.6 Assessment & Plan Assessment & Plan (1) Chronic bilateral back pain: Code(s): M54.9 - Dorsalgia, unspecified; G89.29 - Other chronic pain Category: Medical Qualifiers: Back pain location: low back pain Sciatica presence: without sciatica Qualified Code(s): M54.50 - Low back pain, unspecified; G89.29 - Other chronic pain (2) Piriformis syndrome of right side: Code(s): G57.01 - Lesion of sciatic nerve, right lower limb Category: Medical Plan Chronic on and off back pain, suspect piriformis syndrome. No pain today. We will do SI joint and lumbar x-rays, evaluate disc spaces, rule out sacroiliitis. Getting hip x-rays to rule out osteoarthritis. When pain starts again, patient is to call our office so I could evaluate him. Assessment and plan discussed with patient, and patient was agreeable. All questions were answered thoroughly. Lenka Phillips MD, JANEL Board Certified, [place] Board [employer] and Rehabilitation (ABPMR) Board Certified, [place] Board of Electrodiagnostic Medicine (ABEM) Orders: Orders XR hips JUANCARLOS min 3V Today G89.29 - Other chronic pain, M25.559 - Pain in unspecified hip, M54.9 - Dorsalgia, unspecified XR sacroiliac joint min 3V Today G89.29 - Other chronic pain, M54.9 - Dorsalgia, unspecified XR lumbar spine 2-3V Today G89.29 - Other chronic pain, M54.9 - Dorsalgia, unspecified Coding Level of Care Code New Pt Level 4 (93905) Diagnoses Chronic bilateral low back pain without sciatica M54.50; G89.29 Back pain location: low back pain Sciatica presence: without sciatica Piriformis syndrome of right side G57.01
[2025-03-26 09:35] VITALS: BMI 22.6
== END 2025-03-26 11:17 | disposition home or self-care (01) ==
LOC: HO.HOS 09:27
PROVIDERS: PCP Nurse Practitioner Family; Visit Provider Physical Medicine & Rehabilitation
DX: M54.50 Low back pain, unspecified (principal); G89.29 Other chronic pain; G57.01 Lesion of sciatic nerve, right lower limb
CPT/HCPCS: 99204

== ENCOUNTER 2025-03-26 09:27 | Outpatient (REF) | payer OTHER, SELFPAY ==
--- NOTE | ~2025-03-26 | XR_ITS ---
EXAMINATION: XR BILATERAL HIPS WITH AP PELVIS CLINICAL INFORMATION: M25.559 - Pain in unspecified hip COMPARISON: None available. TECHNIQUE: AP and frog-leg lateral views of each hip. FINDINGS: Right hip: The joint space is congruent and preserved. No chondrocalcinosis is identified. Small marginal osteophyte is present in the fovea. Left hip: There is subtle axial joint space narrowing. There is a small foveal marginal osteophyte without visible chondrocalcinosis. XR/XR hips JUANCARLOS min 3V IMPRESSION: Right hip demonstrates a small foveal osteophyte. Subtle axial joint space narrowing and small foveal marginal osteophyte is noted in the left hip joint. Electronically signed by: Ezequiel De La Rosa MD 03/26/2025 11:06 AM EDT
--- NOTE | ~2025-03-26 | XR_ITS ---
EXAMINATION: XR SACROILIAC JOINTS CLINICAL INFORMATION: M54.9 - Dorsalgia, unspecified COMPARISON: None available. TECHNIQUE: 3 views of the sacroiliac joints FINDINGS: SI joints are symmetrical without narrowing, subchondral sclerosis, effusion, or erosions. XR/XR sacroiliac joint min 3V IMPRESSION: Unremarkable sacroiliac joints. Electronically signed by: Ezequiel De La Rosa MD 03/26/2025 10:58 AM EDT
--- NOTE | ~2025-03-26 | XR_ITS ---
EXAMINATION: XR LUMBOSACRAL SPINE CLINICAL INFORMATION: M54.9 - Dorsalgia, unspecified COMPARISON: None available. TECHNIQUE: Three views of the lumbosacral spine. FINDINGS: Vestigial ribs are present at L1. There are 5 nonrib-bearing lumbar segments otherwise. L1-2 demonstrates mild disc space narrowing. L2-3 demonstrates minimal disc space narrowing. L3-4 unremarkable L4-5: There is subtle retrolisthesis. L5-S1: Unremarkable XR/XR lumbar spine 2-3V IMPRESSION: Very mild disc disease as detailed. Electronically signed by: Ezequiel De La Rosa MD 03/26/2025 11:03 AM EDT
--- OUTSIDE RECORDS SUMMARY | 2025-03-26 12:03 | XMS_ITS | Clinical Summary ---
Author Organization [facility] Address [address] [place] [id number] Phone Care Team Providers Care Senior Windows Systems Administrator Name Role Phone Abelardo Rachel MD Primary Care Provider Allergies No known active allergies Active Problems Problem Noted Date Diagnosed Date Changing skin lesion 11/29/2022 Epidermal inclusion cyst 11/20/2022 Family History Relation Status Comments Father Alive Mother Alive Social History Tobacco Use Types Packs/Day Years Used Date Smoking Tobacco: Never Smokeless Tobacco: Never Tobacco Cessation:Counseling Given: Not Answered Alcohol Use Standard Drinks/Week Comments Yes 0 (1 standard drink = 0.6 oz pur e alcohol) Education Answer Date Recorded Are you interested in more education? Not on juan a e 11/08/2022 Are you concerned about learning? Not on file 11/08/2022 No 11/08/2022 No 11/08/2022 Digital Access Answer Date Recorded No 11/21/2022 No 11/21/2022 No 11/21/2022 Reliable internet access at home? Not on file 11/21/2022 Device with a working camera? Not on file Sex and Gender Information Value Date Recorded Sex Assigned at Not on file Legal Sex Male 1:43 PM EDT Gender Identity Not on file Sexual Orientation Not on file Last Filed Vital Signs Vital Sign Reading Time Taken Comments Blood Pressure 121/81 11/20/2022 1:31 PM EDT Pulse 61 11/20/2022 1:31 PM EDT Temperature - - Respiratory Rate - - Oxygen Saturation - - Inhaled Oxygen Concentration - - Weight 64.9 kg (143 lb) 11/20/2022 1:31 PM EDT Height 167.6 cm (5' 6 ) 11/20/2022 1:31 PM EDT Body Mass Index 23.08 11/20/2022 1:31 PM EDT Plan of Treatment Health Maintenance Due Date Last Done Comments Adult Td,Tdap Booster 1971 LIPID PANEL 1971 DEPRESSION SCREENING 1983 HEPATITIS C SCREENING 1989 HIV ONE-TIME SCREENING (18-6 5 YEARS) 1989 COLOGUARD 2016 COLONOSCOPY 2016 COLORECTAL CANCER SCREENING 2016 FIT TEST 2016 FOBT 2016 SIGMOIDOSCOPY 2016 VIRTUAL COLONOSCOPY 2016 PNEUMOCOCCAL VACCINES (50+ y ears) (1 of 1 - PCV) 2021 ZOSTER VACCINES (1 of 2) 2021 INFLUENZA VACCINE (#1) 2025 COVID-19 VACCINE (2023-2 5 season) 2025 SMOKING STATUS SCREENING (On ce After 26 Yrs) Completed 11/20/2022 HEPATITIS A VACCINES Aged Out No long er eligible based on patient's age to complete this topic HIB VACCINES Aged Out No longer eligi ble based on patient's age to complete this topic MENINGOCOCCAL VACCINES (ACWY) Aged Out No longer eligible based on patient's age to complete this topic MENINGOCOCCAL VACCINES (B) Aged Out N o longer eligible based on patient's age to complete this topic Medical Devices Not on file Insurance [facility] [place] [address] [place] [address] [address] [place] [address] [address] [place] [address] [place] [address] [place] [address] ACO Care Teams Senior Windows Systems Administrator Relationship Specialty Start Date End Date Abelardo Rachel MD [address] [place] [address] PCP - General 11/08/22 Additional Source Comments The information contained in this document represents components of the legal health record. It is not the complete legal health record.[facility]
--- OUTSIDE RECORDS SUMMARY | 2025-03-26 12:03 | XMS_ITS | Clinical Summary ---
Author Organization [facility] Address [address] [place] [address] Phone Care Team Providers Care Pasteurizer Name Role Phone Obie Barry Primary Care Provider [phone] Allergies Active Allergy Reactions Criticality Noted Date Comments Prednisone Rash 02/03/2025 Medications No known medications Encounters Date Type Department Care Team Description 02/25/2025 2:30 PM EDT Procedure visit [address] [phone] Keegan Brewer, DO Melanocytic nevi of other parts of face (Primary Dx) 02/11/2025 Telephone [facility] [address] [phone] Keegan Brewer DO 02/03/2025 2:45 PM EDT Consult [address] [phone] Keegan Brewer, DO Melanocytic nevi of other parts of face from Last 3 Months Social History Tobacco Use Types Packs/Day Years Used Date Smoking Tobacco: Never Assessed Sex and Gender Information Value Date Recorded Sex Assigned at Male 01/05/2025 12:07 PM EDT Legal Sex Male 11:57 AM EDT Gender Identity Male 01/05/2025 12:07 PM EDT Sexual Orientation Straight 01/05/2025 12 :07 PM EDT Last Filed Vital Signs Vital Sign Reading Time Taken Comments Blood Pressure 121/85 02/25/2025 2:42 PM EDT Pulse 69 02/25/2025 2:42 PM EDT Temperature 36.4 C (97.5 F) 02/25/2025 2:42 PM EDT Respiratory Rate - - Oxygen Saturation - - Inhaled Oxygen Concentration - - Weight 63 kg (139 lb) 02/25/2025 2:42 PM EDT Height 167.6 cm (5' 6 ) 02/25/2025 2:42 PM EDT Body Mass Index 22.44 02/25/2025 2:42 PM EDT Plan of Treatment Health Maintenance Due Date Last Done Comments COVID-19 Vaccine (#1) 1976 Hepatitis B Vaccines (1 of 3 - 19+ 3-dose series) 1990 Zoster Vaccines (1 of 2) 1990 Pneumococcal Vaccine: 50+ Ye ars (1 of 1 - PCV) 2021 Depression Screening 07/02/2024 Cholesterol Screening (Lipid Panel) 01/05/2025 Colorectal Cancer Screening: Colonoscopy 01/05/2025 HIV Screening 01/05/2025 Hepatitis C Screening 01/05/2025 Social Influencers of Health Screening 01/05/2025 Influenza Vaccine (#1) 2025 DTaP,Tdap,and Td Vaccines (2 - Td or Tdap) 01/28/2030 01/29/2020 RSV Immunization Adult Patie nts (1 - 1-dose 75+ series) 2046 HIB Vaccines Aged Out No longer eligi ble based on patient's age to complete this topic HPV Vaccines Aged Out No longer eligi ble based on patient's age to complete this topic Hepatitis A Vaccines Aged Out No long er eligible based on patient's age to complete this topic IPV Vaccines Aged Out No longer eligi ble based on patient's age to complete this topic MMR Vaccines Aged Out No longer eligi ble based on patient's age to complete this topic Meningococcal ACWY Vaccine Aged Out N o longer eligible based on patient's age to complete this topic Meningococcal B Vaccine Aged Out No l onger eligible based on patient's age to complete this topic RSV Immunization Patients Un bri 20 months Aged Out No longer eligible b ased on patient's age to complete this topic Varicella Vaccines Aged Out No longer eligible based on patient's age to complete this topic Procedures Procedure Name Priority Date/Time Associated Diagnosis Comments TISSUE EXAM Routine 02/25/2025 3:08 PM EDT Melanocytic nevi of other parts of face from Last 3 Months Results * Tissue Exam (02/25/2025 3:08 PM EDT) Final Diagnosis Skin, upper back, excision: Dermal scar No atypical melanocytic proliferation identified 02/27/2025 12:51 PM EDT [facility] Clinical Information Stitch 3 o'clock superior [id number] COMPOUND NEVUS Melanocytic nevi of other parts of face (D22.39) 02/27/2025 12:51 PM EDT [facility] Gross Description A. Back, Upper, : Labeled back U . Received in formalin is a 1.8 x 0.8 x 0.7 cm eastman, mottled skin ellipse and subcutis with a suture present per the requisition 3 o'clock superior , at one peripheral edge. The 12-3-6 o'clock aspect is inked black. The 6-9-12 o'clock aspect is inked black and the epidermis at 12 is inked green. The specimen is serially sectioned sequentially from 12-6. The cut surfaces are fibrotic. The specimen is submitted in entirety in four cassettes. 1-12 and 6 o'clock en face tips with green ink at 12, two pieces 2-4 center of specimen, blocked out, from 12-6, two pieces each TS 02/27/2025 12:51 PM EDT [facility] Disclaimer Unless otherwise specified, all tissue is 10% NB formalin fixed and paraffin embedded. 02/27/2025 12:51 PM EDT [facility] Tissue Structure of upper back / Unknown Non-blood Collection / Unknown 02/25/2025 3:08 PM EDT 02/25/2025 3:08 PM EDT Comment:Stitch 3 o'clock sup erior [id number] NEVUS us Keegan Brewer DO LAB PATHOLOGY ORDERABLES Final Result [facility] [address] [place] [address], [place] [phone] from Last 3 Months Insurance [facility] PL[facility] Care Teams Pasteurizer Relationship Specialty Start Date End Date Obie Barry FNP [address] [place] [phone] PCP - General Family Medicine 01/05/25
== END 2025-03-26 09:28 | disposition home or self-care (01) ==
LOC: HO.HOSX 09:27
PROVIDERS: PCP Nurse Practitioner Family; Visit Provider Physical Medicine & Rehabilitation
DX: G89.29 Other chronic pain (principal); G57.01 Lesion of sciatic nerve, right lower limb; M54.50 Low back pain, unspecified; M25.551 Pain in right hip; M25.552 Pain in left hip
CPT/HCPCS: 72100; 72202; 73522; 99202

== ENCOUNTER → 2025-03-26 10:06 | Outpatient (BNV) | payer OTHER, SELFPAY | PROVIDERS: PCP Nurse Practitioner Family; Visit Provider Radiology Diagnostic Radiology | DX: M25.751 Osteophyte, right hip (principal); M25.752 Osteophyte, left hip; M54.9 Dorsalgia, unspecified | CPT/HCPCS: 72100; 72202; 73522 ==

== ENCOUNTER 2025-04-27 12:25 | Outpatient (AMB) | payer OTHER, SELFPAY ==
--- NOTE | 2025-04-27 12:29 | A.OFFPC_ITS ---
Vital Signs 04/27/25 12:34 Height 5 ft 6 in Weight 144 lb 8 oz BMI 23.3 BP 114/67 Blood Pressure Location Rt brachial Position Sitting Respiration 16 Pulse 73 Pulse Source Pulse Oximeter Temp 97.3 F Temp Source Oral Pulse Oximetry (%) 99 Oxygen Delivery Method Room Air Intake Visit Reasons: Cyst on finger left hand Intake Note: patient here c/o Cyst on left hand finger Treasury Consultant Required: No Allergies No Known Allergies Allergy (Verified 04/27/25 12:46) Medication List - Last Reconciled 04/27/25 by Obie Barry CNP No Known Home Meds Tobacco use date assessed: 04/27/25 Dental Screening Dental Screen Date: 04/27/25 Did you have a dental visit in the last 12 months?: Yes Did you have a dental problem in the last 6 months where you did not have access to dental care?: No Was dental information given to patient?: Patient has dentist HPI HPI Comments History of Present Illness Details 54-year-old male presents with complaint s of lump to his left 3rd digit. The cyst was surgically removed, but has been growing again, gradually, in the past one year. It is painful only when the area is struck on an object or during the cold weather. No pain to palpation. 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 He wants hand surgery to look at the finger. He had surgical removal of of 3-4 mm mass from the PIP joint of his left hand in 09/13/[address] [place] [facility] [place] 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 Current occupational exposures/hazards: No Cognitive needs: No Hearing needs: No Vision needs: No Questionnaire Thrive Questionnaire Date Thrive assessed: 08/25/24 I am a: Patient What is your living situation today?: I choose not to answer this question Within the past 12 months, did the food you bought not last and you didn't have the money to get more?: I choose not to answer this question Within the past 12 months, did you worry whether your food would run out before you got money to buy more?: I choose not to answer this question Do you have trouble paying for medicines?: I choose not to answer this question Do you have trouble getting transportation to medical appointments?: I choose not to answer this question Do you have trouble paying your heating and electricity bill?: I choose not to answer this question Do you have trouble taking care of your child, family member or friend?: I choose not to answer this question Do you have trouble with day-to-day activities such as bathing, preparing meals, shopping, managing finances, etc.?: I choose not to answer this question Are you currently unemployed and looking for a job?: I choose not to answer this question Are you interested in more education?: I choose not to answer this question Please select the resources that you would like help with: None Currently or been in a relationship where the following occur: I choose not to answer THRIVE Score: 0 ALIZA-7 AMB Questionnaire ALIZA-7 Date ALIZA - 7 assessed: 08/25/24 Source: Developed by Drs. Cordell Lenz, Jade Viera, Austin Mcgrath and colleagues, with an educational reddy from [employer]. Review of Systems Const Details: Const Denies chills, Denies fatigue, Denies fever(s), Denies headache(s) and Denies weakness ENT Denies dizziness and Denies headache(s) Card Denies chest pain, Denies lightheadedness, Denies dyspnea and Denies other (Palpitations) Resp Denies cough, Denies dyspnea, Denies wheezing and Denies other ( shortness of breath) GI Denies abdominal pain, Denies melena, Denies hematochezia, Denies change in bowel habits, Denies dyspepsia and Denies nausea Denies hematuria and Denies dysuria Musc Reports as per HPI Skin/Breast Denies rash, Denies unusual bruising and Denies wounds Neuro Denies abnormal gait, Denies dizziness, Denies headache(s), Denies memory loss, Denies numbness, Denies Sensory deficit (Neuro), Denies tingling and Denies weakness Psych Denies anxiety, Denies depression, Denies memory loss Endo Denies cold intolerance, Denies fatigue, Denies heat intolerance, Denies polydipsia and Denies polyuria Aller/Immun Denies wheezing Physical exam (Primary Care) Vital Signs: Last Vital Signs Temp 97.3 F 04/27/25 12:34 Pulse 73 04/27/25 12:34 Resp 16 04/27/25 12:34 BP 114/67 04/27/25 12:34 Pulse Ox 99 04/27/25 12:34 Oxygen Delivery Method Room Air 04/27/25 12:34 BMI result Body Mass Index 23.3 Tobacco/Smoking Status: Tobacco use Status Tobacco use date assessed 04/27/25 04/27/25 12:37 Patient Tobacco Use Status Never used Tobacco 04/27/25 12:30 e-Cigarette/Vaping Use Never Used 04/27/25 12:30 Thrive Assessment: Date of Thrive Assessment Date Thrive assessed 08/25/24 04/27/25 12:30 Currently or been in a relationship where the following occur: I choose not to answer Const Other: General: no acute distress and well developed Nutritional Appearance: well nourished Orientation/consciousness: patient oriented x3 HENMT Head: Yes normocephalic and Yes atraumatic Eyes General: appearance normal, both eyes and all related structures Pupils: Equal, round and reactive pupils present EOM: EOMs intact bilaterally Resp Effort & Inspection: normal respiratory effort Auscultation: clear to auscultation bilaterally Cardio Rate: regular rate Rhythm: regular rhythm Heart sounds: S1 normal heart sound present, S2 normal heart sound present, no gallops, no murmurs and no rubs GI Palpation (GI): No Abdominal aortic bruit present, Soft to palpation, nontender, No hepatosplenomegaly present and No Rebound tenderness present Auscultation: normal bowel sounds General: Yes no CVA tenderness Back/Spine/Pelvis Back: no CVA tenderness Cervical Spine: cervical ROM normal and No Cervical spine tenderness Thoracic/Lumbar Spine: thoraco-lumbar ROM normal, No pain with thoraco-lumbar ROM, No thoracic spinal tenderness and No lumbar spinal tenderness Extrem General: Yes normal to inspection, No edema and No calf tenderness, Left PIP joint with very small, nontender mass, no erythema or edema, normal ROM Skin General: warm and dry. Normal skin color. Normal skin turgor Neuro General: patient oriented x3, gait normal and no focal neuro deficit Cranial nerves: Yes Equal, round and reactive pupils present Cognition (Neuro): normal cognition Gait exam (Neuro): Normal gait present Sensory Exam: No Sensory deficit (Neuro) Psych Appearance: grossly normal Affect: normal affect Attitude: cooperative Thought process: Normal thought process present Coding Level of Care Code Est Pt Level 4 (49234) Diagnoses Ganglion cyst of finger of left hand M67.442 Assessment & Plan Assessment & Plan (1) Ganglion cyst of finger of left hand: Code(s): M67.442 - Ganglion, left hand Category: Medical Plan: He had surgery in 09/13/2023 but the cyst has been growing gradually in the past 1 year. Left PIP joint with very small, nontender mass, no erythema or edema, normal ROM. Referred to ortho surgery for re-evaluation. Encouraged to perform fasting lab work ordered, in August, and follow-up for telehealth visit for labs review. Verbalized understanding and agreed with plan. Orders: Referrals Hand Surgery Referral M67.442 - Ganglion, left hand
[2025-04-27 12:34] VITALS: BP 114/67; PULSE 73; RESP 16; TEMP 36.3; O2SAT 99; BMI 23.3
--- OUTSIDE RECORDS SUMMARY | 2025-04-27 15:47 | XMS_ITS | Clinical Summary ---
Author Organization [address] [facility] Address [address] [place] [address] Phone Care Team Providers Care Signal Tower Director Name Role Phone Obie Barry Primary Care Provider [phone] Allergies Active Allergy Reactions Criticality Noted Date Comments Prednisone Rash 02/03/2025 Medications No known medications Encounters Date Type Department Care Team Description 02/25/2025 2:30 PM EDT Procedure visit [address] [phone] Keegan Brewer, DO Melanocytic nevi of other parts of face (Primary Dx) 02/11/2025 Telephone [facility] [address] [phone] Keegan Brewer DO 02/03/2025 2:45 PM EDT Consult [address] [id number] Keegan Brewer, DO Melanocytic nevi of other [...] Health Maintenance Due Date Last Done Comments Colorectal Cancer Screening: Colonoscopy 1971 COVID-19 Vaccine (#1) 1976 Hepatitis B Vaccines (1 of 3 - 19+ 3-dose series) 1990 Zoster Vaccines (1 of 2) 1990 Pneumococcal Vaccine: 50+ Ye ars (1 of 1 - PCV) 2021 Depression Screening 07/02/2024 Cholesterol Screening (Lipid Panel) 01/05/2025 HIV Screening 01/05/2025 Hepatitis C Screening [...] melanocytic proliferation identified 02/27/2025 12:51 PM EDT [facility] Clinical Information Stitch 3 o'clock superior [id number] COMPOUND NEVUS Melanocytic nevi of other parts of face (D22.39) 02/27/2025 12:51 PM EDT [facility] Gross Description A. Back, Upper, : [...] pieces each TS 02/27/2025 12:51 PM EDT [facility] Disclaimer Unless otherwise specified, all tissue is 10% NB formalin fixed and paraffin embedded. 02/27/2025 12:51 PM EDT [facility] Tissue Structure of upper back / Unknown Non-blood Collection / Unknown 02/25/2025 3:08 PM EDT 02/25/2025 3:08 PM EDT Comment:Stitch 3 o'clock sup erior [id number] NEVUS us Keegan Brewer DO LAB PATHOLOGY ORDERABLES Final Result [facility] [address] [place] [address], [place] [phone] from Last 3 Months Insurance [facility] Care Teams Signal Tower Director Relationship Specialty Start Date End Date Obie Barry FNP [address] [place] [phone] PCP - General Family Medicine 01/05/25
--- OUTSIDE RECORDS SUMMARY | 2025-04-27 15:47 | XMS_ITS | Clinical Summary ---
Author Organization [facility] Address [address] [place] [id number] Phone Care Team Providers Care Climatology Teacher Name Role Phone Abelardo Rachel MD Primary [...] 2021 INFLUENZA VACCINE (#1) 2025 COVID-19 VACCINE (1 - 2024-2 6 season) 2025 RSV VACCINE (1 - 1-dose 75+ series) 2046 SMOKING STATUS SCREENING (On ce After 26 [...] topic Medical Devices Not on file Insurance [facility] [place] [address] [place] [address] ACO Care Teams Climatology Teacher Relationship Specialty Start Date End Date Abelardo Rachel MD PCP - General 11/08/22 Additional Source Comments The information contained in this document represents components of the legal health record. It is not the complete legal health record.[facility]
== END 2025-04-27 12:55 | disposition home or self-care (01) ==
LOC: HO.HMCFM 12:26
PROVIDERS: PCP Nurse Practitioner Family; Visit Provider Nurse Practitioner Family
DX: M67.442 Ganglion, left hand (principal)

== ENCOUNTER → 2025-04-27 12:25 | Outpatient (BNVA) | payer OTHER, SELFPAY | PROVIDERS: PCP Nurse Practitioner Family; Visit Provider Nurse Practitioner Family | DX: M67.442 Ganglion, left hand (principal) | CPT/HCPCS: 99212 ==